=== PATIENT | female | born 1995 | race Caucasian/White ===

== ENCOUNTER 2018-03-02 07:41 | Emergency (ER) | payer OTHER ==
[~2018-03-02] VITALS: Ht 162.6 cm; Wt 63.6 kg
[2018-03-02 07:49] VITALS: Ht 162.6 cm; Wt 63.6 kg
[2018-03-02 09:35] VITALS: BP 110/69
== END 2018-03-02 09:34 | disposition home or self-care (01) ==
LOC: ED 07:41
DX: R10.32 Left lower quadrant pain (principal); R11.0 Nausea
CPT/HCPCS: J1885

== ENCOUNTER 2018-10-22 09:51 | Emergency (ER) | payer OTHER ==
[~2018-10-22] VITALS: Ht 160 cm; Wt 66.2 kg
[2018-10-22 10:05] VITALS: Ht 160 cm; Wt 66.2 kg
[2018-10-22 11:29] VITALS: BP 121/62
== END 2018-10-22 11:29 | disposition home or self-care (01) ==
LOC: ED 09:51
DX: S13.9XXA Sprain of joints and ligaments of unspecified parts of neck, initial encounter (principal); W01.0XXA Fall on same level from slipping, tripping and stumbling without subsequent striking against object, initial encounter; Y93.89 Activity, other specified; Y92.89 Other specified places as the place of occurrence of the external cause; Y99.8 Other external cause status
CPT/HCPCS: J1885; Q0092

== ENCOUNTER 2019-09-07 08:46 | Emergency (ER) | payer OTHER ==
[~2019-09-07] VITALS: Ht 160 cm; Wt 65.8 kg
[2019-09-07 09:02] VITALS: BP 108/62; Ht 160 cm; Wt 65.8 kg
== END 2019-09-07 11:07 | disposition home or self-care (01) ==
LOC: ED 08:46
DX: S93.401A Sprain of unspecified ligament of right ankle, initial encounter (principal); X50.1XXA Overexertion from prolonged static or awkward postures, initial encounter; Y93.89 Activity, other specified; Y92.89 Other specified places as the place of occurrence of the external cause; Y99.8 Other external cause status